=== PATIENT | female | born 1990 | race Caucasian/White ===

== ENCOUNTER 2018-06-19 08:48 | Emergency (ER) | payer SELFPAY ==
[2018-06-19] MEDS ORDERED: Aspirin 325 mg EC Tablets PO STA (09:04)
--- NOTE | 2018-06-19 09:07 | ED PDOC ---
Arrival/HPI - General Chief Complaint: Back Pain Time Seen by Provider: 06/19/18 08:52 Historian: Patient - History of Present Illness Narrative History of Present Illness (Text): 06/19/18 09:04 A 28 year old female presents to the emergency department complaining of intermittent left-sided chest pain radiating to the back for the past 2-3 days. Patient reports also experiencing associated diaphoresis and nausea. Patient denies any shortness of breath, or any other complaints at this time. Denies any history of hypertension or diabetes. Patient is currently asymptomatic. No history of smoking or EtOH/substance abuse. Patient states she is taking contraceptives for control. Associated Symptoms (Text): 06/19/18 09:18 Intermittent left-sided chest pain with radiation into her left back for the last 2-3 days. The pain lasts on the order of minutes. She is currently pain- free. There is associated near syncope diaphoresis and nausea with the pain. No dyspnea. She has never experienced this previously. She is currently asymptomatic. No hypertension hyperlipidemia or diabetes. She is a never smoker. Past Medical History - Provider Review Nursing Documentation Reviewed: Yes - Infectious Disease Hx of Infectious Diseases: None - Reproductive Menopause: No - Psychiatric Hx Substance Use: No Family/Social History - Physician Review Nursing Documentation Reviewed: Yes Family/Social History: No Known Family HX Smoking Status: Never Smoked Hx Alcohol Use: No Hx Substance Use: No Allergies/Home Meds Allergies/Adverse Reactions: Allergies No Known Allergies Allergy (Verified 06/19/18 08:58) Home Medications: Home Meds Medication Instructions Recorded Confirmed No Known Home Med 06/19/18 06/19/18 Review of Systems - Physician Review All systems were reviewed & negative as marked: Yes - Review of Systems Constitutional: Fatigue. absent: Fevers Respiratory: absent: SOB, Cough, Sputum, Wheezing Cardiovascular: Chest Pain (intermittent left-sided chest pain radiating to the back). absent: Palpitations, Syncope Gastrointestinal: Nausea. absent: Abdominal Pain, Constipation, Diarrhea, Vomiting Neurological: Dizziness. absent: Headache, Focal Weakness, Gait Changes, Speech Changes, Facial Droop, Disequilibrium, Seizure Endocrine: Diaphoresis Physical Exam Temperature: Afebrile Blood Pressure: Normal Pulse: Regular Respiratory Rate: Normal Appearance: Positive for: Well-Appearing, Non-Toxic, Comfortable Pain Distress: None Mental Status: Positive for: Alert and Oriented X 3 - Systems Exam Head: Present: Atraumatic, Normocephalic Pupils: Present: PERRL Extroacular Muscles: Present: EOMI Conjunctiva: Present: Normal Mouth: Present: Moist Mucous Membranes Pharnyx: No: ERYTHEMA, EXUDATE, TONSILS ENLARGED Neck: Present: Normal Range of Motion Respiratory/Chest: Present: Clear to Auscultation, Good Air Exchange. No: Respiratory Distress, Accessory Muscle Use Cardiovascular: Present: Regular Rate and Rhythm, Normal S1, S2. No: Murmurs Abdomen: No: Tenderness, Distention, Peritoneal Signs Back: Present: Normal Inspection. No: Midline Tenderness, Paraspinal Tenderness Upper Extremity: Present: Normal Inspection. No: Cyanosis, Edema Lower Extremity: Present: Normal Inspection. No: Edema Neurological: Present: GCS=15, CN II-XII Intact, Speech Normal, Motor Func Grossly Intact Skin: Present: Warm, Dry, Normal Color. No: Rashes Psychiatric: Present: Alert, Oriented x 3, Normal Insight, Normal Concentration Medical Decision Making ED Course and Treatment: 06/19/18 09:06 Impression: 28 year old female with intermittent left-sided chest pain radiating to the back. No acute findings on physical examination. Plan: -- EKG -- Labs -- Aspirin -- Urinalysis -- POC Urine Test Progress Notes: 06/19/18 09:20 EKG shows normal sinus rhythm rate approximately [address] or T wave changes. 06/19/18 10:20 Workup is unremarkable including d-dimer and first troponin. Patient will have a second troponin drawn and if normal discharge home to follow-up with PMD. 06/19/18 13:35 4-hour troponin is within normal limits. Patient remains pain-free. Discharged home to follow-up with PMD or in the clinic. Daily baby aspirin. Follow-up in ER as needed. - RAD Interpretation Radiology Orders: Chest one view shows no infiltrate effusion or cardiomegaly. Cosmetic Maker: ED Physician - Scribe Statement The provider has reviewed the documentation as recorded by the Scribe Kirit Courtney All medical record entries made by the Scribe were at my direction and personally dictated by me. I have reviewed the chart and agree that the record accurately reflects my personal performance of the history, physical exam, medical decision making, and the department course for this patient. I have also personally directed, reviewed, and agree with the discharge instructions and disposition. Disposition/Present on Arrival - Present on Arrival Any Indicators Present on Arrival: No History of DVT/PE: No History of Uncontrolled Diabetes: No Urinary Catheter: No History of Decub. Ulcer: No History Surgical Site Infection Following: None - Disposition Have Diagnosis and Disposition been Completed?: Yes Diagnosis: Chest pain Disposition: HOME/ ROUTINE Disposition Time: 13:35 Patient Plan: Discharge Condition: GOOD Additional Instructions: Daily baby aspirin. Follow-up with PMD. Follow-up in the ER as needed. Referrals: [facility] [place] [Outside] - Follow up with primary [facility] [place] [Outside] - Follow up with primary Forms: [facility] ([place]), WORK NOTE
[2018-06-19 09:37] LABS: URINE BILIRUBIN NEGATIVE (NEGATIVE); URINE BLOOD TRACE-LYSED (NEGATIVE); URINE GLUCOSE (UA) NEGATIVE (NEGATIVE); URINE LEUKOCYTE ESTERASE TRACE Leu/uL (NEGATIVE); URINE PROTEIN NEGATIVE mg/dL (<30 mg/dL); URINE UROBILINOGEN 0.2 E.U./dL (<1 E.U./dL)
[2018-06-19 09:37] LABS: BASO # 0.03 K/mm3 (0.0-2.0); BASO % 0.3 % (0.0-3.0); EOS # 0.7 (0.0-0.7); EOS % 6.5 % (1.5-5.0); HEMOGLOBIN 12.6 g/dL (12.0-16.0); LYMPH # 2.2 (1.2-3.4); LYMPH % 21.3 % (22.0-35.0); MEAN CELL VOLUME 88.9 fl (80.0-105.0); MEAN CORPUSCULAR HEMOGLOBIN 28.5 pg (25.0-35.0); MEAN CORPUSCULAR HGB CONC 32.1 g/dl (31.0-37.0); MEAN PLATELET VOLUME 10.6 fl (7.0-11.0); MONO # 0.6 (0.1-0.6); MONO % 5.9 % (1.0-6.0); RBC 4.42 10^6/uL (3.5-6.1); RED CELL DISTRIBUTION WIDTH 12.8 % (11.5-14.5); WHITE BLOOD COUNT 10.3 10^3/uL (4.5-11.0)
[2018-06-19 09:40] LABS: ALB/GLOB RATIO 1.2 (1.1-1.8); ALBUMIN 4.3 g/dL (3.0-4.8); ALT/SGPT 18 U/L (7-56); AST/SGOT 30 U/L (14-36); BLOOD UREA NITROGEN 14 mg/dL (7-21); GFR NON-AFRICAN AMERICAN > 60
[2018-06-19 09:43] LABS: URINE APPEARANCE CLEAR (CLEAR); URINE COLOR YELLOW (YELLOW)
[2018-06-19 09:51] LABS: TROPONIN I < 0.01 ng/mL
[2018-06-19 10:24] LABS: URINE BACTERIA MANY /hpf
--- NOTE | 2018-06-19 10:35 | RAD ---
Date of service: 06/19/2018 HISTORY: Chest pain. COMPARISON: No prior. FINDINGS: LUNGS: No active pulmonary disease. PLEURA: No significant pleural effusion identified, no pneumothorax apparent. CARDIOVASCULAR: No atherosclerotic calcification present Normal. OSSEOUS STRUCTURES: No significant abnormalities. VISUALIZED UPPER ABDOMEN: Normal. OTHER FINDINGS: None. IMPRESSION: No active disease.
[2018-06-19 11:45] VITALS: RESP 19; TEMP 98
[2018-06-19 13:47] VITALS: BP 118/73; PULSE 85; O2SAT 99
--- NOTE | 2018-06-19 15:25 | CARD ---
APPROVED REPORT Date of service: 06/19/2018 EKG Measurement Heart [id number] <Conclusion> Normal sinus rhythm Normal ECG
== END 2018-06-19 13:46 | disposition home or self-care (01) ==
LOC: ED 08:48
DX: R07.9 Chest pain, unspecified (principal)